=== PATIENT | female | born 1985 | race Caucasian/White ===

== ENCOUNTER 2016-07-12 14:07 | Emergency (ER) | payer SELFPAY ==
--- NOTE | 2016-07-12 14:35 | UC ---
Hand/Wrist HPI - HPI Summary HPI Summary: hit right hand on a freezer door at work Wednesday pain in 1st mc, pain ful ROM in wrist - History Of Current Complaint Chief Complaint: UCUpperExtremity Stated Complaint: RIGHT HAND PAIN Time Seen by Provider: 07/12/16 14:45 Hx Obtained From: Patient Hx Last Menstrual Period: feb 06 ?: No Mechanism Of Injury: hit hand on a freezer door Onset/Duration: Sudden Onset, Lasting Days - 2, Still Present Severity Initially: Moderate Severity Currently: Moderate Pain Intensity: 6 Pain Scale Used: 0-10 Numeric Character Of Pain: Aching, Throbbing Aggravating Factor(s): Movement Alleviating: Nothing, Other - ibuprofen Associated Signs And Symptoms: Positive: Swelling, Numbness/Tingling Related History: Occupational Injury, Dominant Hand Right - Allergies/Home Medications Allergies/Adverse Reactions: Allergies Allergy/AdvReac Type Severity Reaction Status Date / Time Ciprofloxacin Allergy Itching Verified 02/06/16 10:35 Cephalexin Allergy Itching Uncoded 07/12/16 14:40 PMH/Surg Hx/FS Hx/Imm Hx Previously Healthy: No Endocrine History Of: Denies: Diabetes, Thyroid Disease Cardiovascular History Of: Denies: Cardiac Disorders, Hypertension, Pacemaker/ICD Respiratory History Of: Reports: Asthma Denies: COPD GI/ History Of: Denies: Ulcer - Surgical History Surgical History: Yes Surgery Procedure, Year, and Place: Rt WRIST GANGLION cyst - 1999 ( [facility]) - Family History Known Family History: Positive: None - Social History 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 Lives: With Family Alcohol Use: None Substance Use Type: None Smoking Status (MU): Heavy Every Day Tobacco Smoker Type: Cigarettes Amount Used/How Often: 1/2 ppd Have You Smoked in the Last Year: Yes Household Exposure Type: Cigarettes Cessation Counseling: Patient Advised to Stop - Immunization History Most Recent Influenza Vaccination: not utd Most Recent Tetanus Shot: 2008 Most Recent Pneumonia Vaccination: none Hx Tetanus, Diphtheria Vaccination: No Vaccination Up to Date: No Review of Systems Constitutional: Negative Skin: Negative Eyes: Negative ENT: Negative Respiratory: Negative Cardiovascular: Negative Gastrointestinal: Negative Genitourinary: Negative Motor: Negative Neurovascular: Negative Musculoskeletal: Negative, Arthralgia - right 1st mc and wrist, Edema Neurological: Negative Psychological: Negative All Other Systems Reviewed And Are Negative: Yes Physical Exam Triage Information Reviewed: Yes Appearance: Well-Appearing, Pain Distress, Obese Vital Signs Reviewed: Yes Eye Exam: Normal Eyes: Positive: Conjunctiva Clear ENT Exam: Normal ENT: Positive: Normal ENT inspection, Hearing grossly normal. Negative: Nasal congestion, Nasal drainage, Tonsillar swelling, Tonsillar exudate, Trismus, Muffled/hoarse voice Dental Exam: Normal Neck exam: Normal Neck: Positive: Supple, Nontender, No Lymphadenopathy Respiratory Exam: Normal Respiratory: Positive: Chest non-tender, No respiratory distress, No accessory muscle use Cardiovascular Exam: Normal Cardiovascular: Positive: RRR, Pulses Normal, Brisk Capillary Refill Musculoskeletal Exam: Normal Musculoskeletal: Positive: Strength Limited @ - right wrist, ROM Limited @ - right wrist, Edema @ - right wrist Neurological Exam: Normal Neurological: Positive: Alert, Muscle Tone Normal Psychological Exam: Normal Skin Exam: Normal Diagnostics - Radiology No standard instances Xray Interpretation: No Acute Changes Radiology Interpretation Completed By: Radiologist Hand/Wrist Course/Dx - Course Course Of Treatment: ibuprofen, rest elevation, splint follow with orthopedic MD on the as planned - Differential Dx/Diagnosis Differential Diagnosis/HQI/PQRI: Contusion, Fracture, Sprain, Strain Provider Diagnoses: Contusion right wrist acute on chronic injury Discharge - Discharge Plan Condition: Stable Disposition: HOME Prescriptions: Ibuprofen ADULT LIQ* [Motrin LIQ ADULT*] 600 mg PO QID PRN #720 ml PRN Reason: Pain Patient Education Materials: Wrist Injury (ED), Arthralgia (ED), RICE Therapy ( ED) Forms: *Work Release Referrals: Michel Robles MD [Medical Doctor] - 07/15/16 No Primary Care Phys,NOPCP [Primary Care Provider] -
[2016-07-12 14:40] VITALS: BP 123/80
[2016-07-12] MEDS ORDERED: Ibuprofen ADULT LIQ* 600 MG/30 ML UDC PO ONE (14:46)
--- NOTE | 2016-07-12 15:25 | RAD ---
Indication: Right hand injury, attention to the first metacarpal. 4 views of the right hand are reviewed. There is no fracture or dislocation. No other bone or joint abnormality is identified. IMPRESSION: No fracture of the right hand is noted.
== END 2016-07-12 16:17 | disposition home or self-care (01) ==
LOC: UCEAST 14:07
DX: S60.211A Contusion of right wrist, initial encounter (principal); Y29.XXXA Contact with blunt object, undetermined intent, initial encounter; F17.290 Nicotine dependence, other tobacco product, uncomplicated; Z88.1 Allergy status to other antibiotic agents
CPT/HCPCS: 99213; A9270-GY; G0463

== ENCOUNTER 2016-07-25 18:55 | Emergency (ER) | payer OTHER ==
[2016-07-25] MEDS ORDERED: NS 0.9% 1000 ML* 1,000 ML IV ONE (19:52)
[2016-07-25 20:19] LABS: Hematocrit 43 % (35-47); Hemoglobin 15.1 g/dl (12.0-16.0); Mean Corpuscular HGB Conc 35 g/dl (31-36); Mean Corpuscular Hemoglobin 29 pg (27-31); Mean Corpuscular Volume 83 fL (80-97); Mean Platelet Volume 11 um3 (7.4-10.4); Red Blood Count 5.21 10^6/ul (4.0-5.4); Red Cell Distribution Width 13 % (10.5-15); White Blood Count 6.9 10^3/ul (3.5-10.8)
[2016-07-25 20:35] LABS: ALT 17 U/L (7-52); AST 18 U/L (13-39); Albumin 4.6 g/dL (3.2-5.2); Alkaline Phosphatase 109 U/L (34-104); Anion Gap 6 mmol/L (2-11); BUN/Creatinine Ratio 10.1 (8-20); Blood Urea Nitrogen 10 mg/dL (6-24); C Reactive Protein 2.21 mg/L (< 5.00); CO2 Carbon Dioxide 25 mmol/L (22-32); Chloride 105 mmol/L (101-111); EGFR African American 83.6 (>60); Globulin 3.4 g/dL (2-4); Glucose 110 mg/dL (70-100); Lipase 24 U/L (11.0-82.0); Potassium 3.8 mmol/L (3.5-5.0); Sodium 136 mmol/L (133-145)
[2016-07-25] MEDS ORDERED: Ondansetron INJ* 2 MG/ML VIAL ONE (20:49)
[2016-07-25] MEDS ORDERED: Ondansetron INJ* 2 MG/ML VIAL IV ONE (20:53)
[2016-07-25] MEDS ORDERED: Iohexol 300* (CONTRAST) 10 ML SDV IV ONE (21:15)
--- NOTE | 2016-07-25 23:27 | RAD ---
CLINICAL HISTORY: Right lower quadrant pain x2 days COMPARISON: CT of the abdomen and pelvis dated September 26, 2006. TECHNIQUE: Contrast enhanced CT examination of the abdomen and pelvis from the lung bases through the initial tuberosities. The patient received 139 mL Omnipaque 300 intravenously prior to imaging.The patient received oral contrast as well prior to imaging. FINDINGS: VISUALIZED LUNG BASES: The visualized lung bases are grossly clear. There is no pleural effusion. ABDOMEN AND PELVIS: The liver, pancreas and adrenal glands are grossly normal in appearance. The homogenously attenuating spleen is enlarged measuring a maximum cephalocaudal dimension of 16.4 cm. This is only slightly larger from the previous CT examination when it measured 15.9 cm. The gallbladder is normal. The kidneys are normal in appearance without focal mass, calcification or signs of hydronephrosis. The oral contrast has progressed as far as the base of the cecum. The small and large bowel are not distended. The patient's normal appendix is identified in the right lower quadrant measuring under 6 mm in diameter and with gas in the lumen. Evaluation of the distal colon is limited as oral contrast has not progressed as far but there is no obvious wall thickening, pathologic dilatation or pericolonic fat stranding.. There is no gross retroperitoneal or mesenteric lymphadenopathy. The pelvic viscera is normal in appearance. The abdominal aorta and iliac arteries are normal in course and diameter. There are no sinister bone lesions. IMPRESSION: There is stable splenomegaly of uncertain clinical significance in this otherwise normal CT examination.
[2016-07-26 00:45] LABS: Urine Bacteria Absent (Absent); Urine Bilirubin Negative (Negative); Urine Glucose Negative (Negative); Urine Nitrite Negative (Negative)
[2016-07-26] MEDS ORDERED: Levofloxacin TAB* 500 MG PO ONE (00:49)
[2016-07-26] MEDS ORDERED: Ibuprofen TAB* 600 MG PO ONE (00:53)
[2016-07-26] MEDS ORDERED: Sulfamethox/Trimethoprim DS 800/160* TAB PO ONE (00:54)
[2016-07-26 01:53] VITALS: BP 109/60
--- NOTE | 2016-07-26 01:55 | ED ---
Malena Celeste Anna, scribed for Brendon Brewer on 07/25/16 at 1952 . Abdominal Pain/Female - HPI Summary HPI Summary: Patient is a 31 y/o female coming to [facility] presenting with constant, lower right abd pain that began a couple days ago. The pain worsened today and is described of severity 10/10. She has had nausea and emesis. Denies fever, vaginal discharge or bleeding, Hx of appendicitis, or Hx of cholecystitis. She took 600 mg ibuprofen this morning, which did not alleviate the pain. - History of Current Complaint Chief Complaint: EDAbdPain Stated Complaint: SEVERE RIGHT SIDE PAIN Time Seen by Provider: 07/25/16 19:38 Hx Obtained From: Patient Onset/Duration: Gradual Onset, Still Present, Worse Since - today Timing: Days Severity Initially: Moderate Severity Currently: Moderate Pain Intensity: 10 - /10 Location: Discrete At: RLQ Radiates: No Alleviating Factor(s): Nothing Associated Signs and Symptoms: Positive: Nausea, Vomiting. Negative: Fever, Vaginal Bleeding, Vaginal Discharge Allergies/Adverse Reactions: Allergies Allergy/AdvReac Type Severity Reaction Status Date / Time Ciprofloxacin Allergy Itching Verified 07/25/16 19:48 Cephalexin Allergy Itching Uncoded 07/25/16 19:48 PMH/Surg Hx/FS Hx/Imm Hx Endocrine/Hematology History: Denies: Hx Diabetes, Hx Thyroid Disease Cardiovascular History: Denies: Hx Hypertension, Hx Pacemaker/ICD Respiratory History: Reports: Hx Asthma Denies: Hx Chronic Obstructive Pulmonary Disease (COPD) GI History: Denies: Hx Ulcer Musculoskeletal History: Denies: Hx Rheumatoid Arthritis, Hx Osteoporosis Sensory History: Denies: Hx Hearing Aid Psychiatric History: Denies: Hx Panic Disorder - Surgical History Surgery Procedure, Year, and Place: Rt WRIST [place]GLION cyst - 1999 [place] [facility] [place] Infectious Disease History: Denies: Hx Clostridium Difficile, Hx Hepatitis, Hx Human Immunodeficiency Virus (HIV), Hx of Known/Suspected MRSA, Hx Shingles, Hx Tuberculosis, Hx Known/ Suspected VRSA, History Other Infectious Disease, Traveled Outside the [place] in Last 30 Days - Family History Known Family History: Negative: Cardiac Disease, Hypertension - Social History Alcohol Use: None Substance Use Type: Reports: None Smoking Status (MU): Heavy Every Day Tobacco Smoker Type: Cigarettes Amount Used/How Often: 1/2 ppd Have You Smoked in the Last Year: Yes Review of Systems Negative: Fever Positive: Abdominal Pain, Vomiting, Nausea Negative: discharge All Other Systems Reviewed And Are Negative: Yes Physical Exam Triage Information Reviewed: Yes Vital Signs On Initial Exam: Initial Vitals Temp Pulse Resp BP Pulse Ox 99.2 F 112 24 147/96 100 07/25/16 19:28 07/25/16 19:28 07/25/16 19:28 07/25/16 19:28 07/25/16 19:28 Vital Signs Reviewed: Yes Appearance: Positive: Well-Appearing, No Pain Distress Skin: Positive: Warm, Skin Color Reflects Adequate Perfusion Head/Face: Positive: Normal Head/Face Inspection Eyes: Positive: EOMI, BEATRIZ ENT: Positive: Normal ENT inspection Neck: Positive: Supple, Nontender Respiratory/Lung Sounds: Positive: Clear to Auscultation, Breath Sounds Present Cardiovascular: Positive: RRR, Pulses are Symmetrical in both Upper and Lower Extremities Abdomen Description: Positive: Soft, Other: - Severe tenderness in RLQ Bowel Sounds: Positive: Present Musculoskeletal: Positive: Normal, Strength/ROM Intact Neurological: Positive: Normal, Sensory/Motor Intact, Alert, Oriented to Person Place, Time Diagnostics - Vital Signs Vital Signs Temp Pulse Resp BP Pulse Ox 07/25/16 19:28 99.2 F 112 24 147/96 100 - Laboratory Result Diagrams: 07/25/16 20:10 07/25/16 20:10 Lab Statement: Any lab studies that have been ordered have been reviewed, and results considered in the medical decision making process. - CT CT abd/pel CT Interpretation: No Acute Changes CT Interpretation Completed By: Radiologist - IMPRESSION: There is stable splenomegaly of uncertain clinical significance in this otherwise normal CT examination. Abdominal Pain Fem Course/Dx - Course Course Of Treatment: Declines analgesics at this time. CT to r/o appendicitis. Patient is a 31 y/o female coming to [facility] presenting with constant, lower right abd pain that began a couple days ago. CT, labs done. UA shows mild UTI. Pt will be discharged home with Abx and f/u from PCP within 3 days. - Diagnoses Provider Diagnoses: UTI (urinary tract infection) Discharge - Discharge Plan Condition: Stable Disposition: HOME Patient Education Materials: Urinary Tract Infection in Women (ED) Referrals: [facility] [place]YSICIAN REFERRAL [Outside] Additional Instructions: Follow up with your primary care provider within 72 hours. Return to the Emergency Department for new or worsening symptoms. The documentation as recorded by the Malena bailey Anna accurately reflects the service I personally performed and the decisions made by , Brendon Brewer.
== END 2016-07-26 01:45 | disposition home or self-care (01) ==
LOC: ED 18:55
DX: N39.0 Urinary tract infection, site not specified (principal); F17.210 Nicotine dependence, cigarettes, uncomplicated; Z88.1 Allergy status to other antibiotic agents
CPT/HCPCS: 36415; 74177; 80053; 81003; 81015; 83605; 83690; 84702; 85025; 85610; 85730; 86140; 87040; 87086; 96374; 99283; A9270-GY; J2405; Q9967

== ENCOUNTER 2016-08-22 19:59 | Emergency (ER) | payer OTHER ==
[2016-08-22 20:05] VITALS: BP 134/88
--- NOTE | 2016-08-22 20:42 | UC ---
Hand/Wrist HPI - History Of Current Complaint Chief Complaint: UCUpperExtremity Stated Complaint: HAND PAIN Time Seen by Provider: 08/22/16 20:36 Hx Last Menstrual Period: 07/31/16 Onset/Duration: Sudden Onset - yesterday left hand pain., Worse Since - throughout the day today. Character Of Pain: Sharp - stabbing in the center of the palm Aggravating Factor(s): Movement, Lifting, Pulling Alleviating: Rest Associated Signs And Symptoms: Positive: Swelling, Numbness/Tingling - with pressure over the carpal tunnel. Related History: Dominant Hand Right - Allergies/Home Medications Allergies/Adverse Reactions: Allergies Allergy/AdvReac Type Severity Reaction Status Date / Time Ciprofloxacin Allergy Itching Verified 08/22/16 20:32 Cephalexin Allergy Itching Uncoded 08/22/16 20:32 PMH/Surg Hx/FS Hx/Imm Hx Previously Healthy: Yes Other History Of: Negative For: HIV - Surgical History Surgical History: Yes Surgery Procedure, Year, and Place: Rt WRIST GANGLION cyst - 1999 ( [facility] [place]) - Family History Known Family History: Positive: None, Diabetes Negative: Cardiac Disease, Hypertension - Social History Occupation: Employed Full-time Lives: Alone Alcohol Use: None Substance Use Type: None Smoking Status (MU): Heavy Every Day Tobacco Smoker Type: Cigarettes Amount Used/How Often: 1/2 ppd Have You Smoked in the Last Year: Yes Household Exposure Type: Cigarettes Cessation Counseling: Patient Advised to Stop - Immunization History Most Recent Influenza Vaccination: not utd Most Recent Tetanus Shot: 2008 Most Recent Pneumonia Vaccination: none Hx Tetanus, Diphtheria Vaccination: No Vaccination Up to Date: No Review of Systems Neurological: Numbness - at the tips of the fingers. 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 Pain with PROM extension., Other: - tenderness over the volar wrist. Neurological: Positive: Other: - decreased sharp sensation at all finger tips Psychological Exam: Normal Skin Exam: Normal Hand/Wrist Course/Dx - Differential Dx/Diagnosis Differential Diagnosis/HQI/PQRI: Carpal Tunnel Syndrome, Tendonitis, Tenosynovitis Provider Diagnoses: Neuritis. Tendonitis Discharge - Discharge Plan Condition: Stable Disposition: HOME Prescriptions: Gabapentin CAP(*) [Neurontin 300 CAP(*)] 300 mg PO BEDTIME #30 cap predniSONE TAB* [Deltasone TAB*] 20 mg PO DAILY #18 tab Patient Education Materials: Peripheral Neuropathy (ED), Tendinitis (ED), Prednisone (By mouth), Gabapentin (By mouth) Additional Instructions: Smoking Cessation Tricks. 1. Cut down by 1 cigarette per day every 2-3 days. Write the number of smokes for that day on the calendar. 2. Identify triggers to smoking: after meals, on the phone, in the car, with coffee, on breaks at work, etc. 3. Formulate a plan with a behavior to replace the smoking. Fireballs in the car , doodle pad on the phone, flavored creamer for the coffee, go for a walk after a meal or on break at work. 4. For stress smokes do deep breathing relaxation. Breath deep in through the nose hold the breath in for a few seconds then breath out slowly through the mouth.
== END 2016-08-22 21:00 | disposition home or self-care (01) ==
LOC: UCEAST 19:59
DX: M79.2 Neuralgia and neuritis, unspecified (principal); M77.9 Enthesopathy, unspecified; Z88.3 Allergy status to other anti-infective agents; F17.210 Nicotine dependence, cigarettes, uncomplicated
CPT/HCPCS: 99212; G0463

== ENCOUNTER 2016-10-29 14:36 | Emergency (ER) | payer OTHER ==
[2016-10-29 14:58] VITALS: BP 145/101
--- NOTE | 2016-10-29 15:07 | UC ---
Lower Extremity/Ankle HPI - HPI Summary HPI Summary: 31 YEAR OLD FEMALE PRESENTS WITH LEFT KNEE INJURY SECONDARY TO TWISTING IT. - History of Current Complaint Chief Complaint: UCLowerExtremity Stated Complaint: LEG INJURY Time Seen by Provider: 10/29/16 15:06 Hx Last Menstrual Period: 10/04/16 - Allergies/Home Medications Allergies/Adverse Reactions: Allergies Allergy/AdvReac Type Severity Reaction Status Date / Time Ciprofloxacin Allergy Itching Verified 08/22/16 20:32 Cephalexin Allergy Itching Uncoded 08/22/16 20:32 PMH/Surg Hx/FS Hx/Imm Hx Previously Healthy: Yes Other History Of: Negative For: HIV - Surgical History Surgical History: Yes Surgery Procedure, Year, and Place: Rt WRIST GANGLION cyst - 1999 ( [facility]) - Family History Known Family History: Positive: None, Diabetes Negative: Cardiac Disease, Hypertension - Social History Alcohol Use: Rare Substance Use Type: None Smoking Status (MU): Heavy Every Day Tobacco Smoker Type: Cigarettes Amount Used/How Often: 1/2 ppd Have You Smoked in the Last Year: Yes Household Exposure Type: Cigarettes - Immunization History Most Recent Influenza Vaccination: not utd Most Recent Tetanus Shot: 2008 Most Recent Pneumonia Vaccination: none Hx Tetanus, Diphtheria Vaccination: No Vaccination Up to Date: No Review of Systems Constitutional: Negative Skin: Negative Eyes: Negative ENT: Negative Respiratory: Negative Cardiovascular: Negative Gastrointestinal: Negative Genitourinary: Negative Motor: Negative Neurovascular: Negative Musculoskeletal: Other: - LEFT KNEE PAIN/SWELLING Neurological: Negative Psychological: Negative All Other Systems Reviewed And Are Negative: Yes Physical Exam Triage Information Reviewed: Yes Vital Signs: Initial Vital Signs Temp 36.9 C 10/29/16 14:54 Pulse 75 10/29/16 14:54 Resp 18 10/29/16 14:54 BP 145/101 10/29/16 14:54 Pulse Ox 100 10/29/16 14:54 Eye Exam: Normal ENT Exam: Normal Dental Exam: Normal Neck exam: Normal Neck: Positive: 1 Respiratory Exam: Normal Cardiovascular Exam: Normal Abdominal Exam: Normal Musculoskeletal: Positive: Other: - LEFT KNEE PAIN/SWELLING Neurological Exam: Normal Psychological Exam: Normal Skin Exam: Normal Lower Extremity Course/Dx - Differential Dx/Diagnosis Provider Diagnoses: LEFT KNEE SPRAIN Discharge - Discharge Plan Condition: Stable Disposition: HOME Prescriptions: Meloxicam [Mobic] 7.5 mg PO BID PC #30 tab Methocarbamol TAB* [Robaxin 500 MG TAB*] 750 mg PO TID PRN #30 tab PRN Reason: Spasms Patient Education Materials: Knee Pain (ED), Leg Pain (ED) Forms: *Work Release Referrals: Michel Zimmer MD [Medical Doctor] - Peng uDnn MD [Primary Care Provider] -
--- NOTE | 2016-10-29 15:42 | RAD ---
INDICATION: Left knee injury COMPARISON: None TECHNIQUE: AP, lateral, tunnel, and sunrise views were obtained. FINDINGS: The bony structures, joint spaces, and soft tissues are normal for age. IMPRESSION: NEGATIVE EXAMINATION.
== END 2016-10-29 16:05 | disposition home or self-care (01) ==
LOC: UCEAST 14:36
DX: S83.92XA Sprain of unspecified site of left knee, initial encounter (principal); X50.1XXA Overexertion from prolonged static or awkward postures, initial encounter; Z88.3 Allergy status to other anti-infective agents; F17.210 Nicotine dependence, cigarettes, uncomplicated
CPT/HCPCS: 99213; G0463

== ENCOUNTER 2017-01-05 16:38 | Emergency (ER) | payer OTHER ==
[2017-01-05] MEDS ORDERED: NS 0.9% 1000 ML* 1,000 ML IV ONE (18:58)
[2017-01-05] MEDS ORDERED: cefTRIAXone(*) 1 GM in NS 0.9% 50 ML* 50 ML IVPB ONE (18:58)
[2017-01-05] MEDS ORDERED: Ketorolac INJ* 15 MG/ML 1 ML VIAL IV PUSH ONE (19:01)
--- NOTE | 2017-01-05 19:12 | ED ---
Abdominal Pain/Female - HPI Summary HPI Summary: 31F hx of gallbladder disease, spondylosis, presents with RLQ abd pain accompanied by nausea, vom, and fever. intermittent now constant started periumbilical now RLQ. + dysuria and cloudy urine. Denies any prior episodes. No abd surgeries in the past. no weakness or numbness. Worse with movement and palpation. denies or vaginal bleeding or discharge. - History of Current Complaint Chief Complaint: EDAbdPain Stated Complaint: ABD PAIN Time Seen by Provider: 01/05/17 18:49 Hx Last Menstrual Period: 10/04/16 Pain Intensity: 10 Allergies/Adverse Reactions: Allergies Allergy/AdvReac Type Severity Reaction Status Date / Time Ciprofloxacin Allergy Itching Verified 11/09/16 14:33 Cephalexin Allergy Itching Uncoded 11/09/16 14:33 PMH/Surg Hx/FS Hx/Imm Hx Endocrine/Hematology History: Denies: Hx Diabetes - HYPOGLYCEMIC, Hx Thyroid Disease Cardiovascular History: Denies: Hx Hypertension, Hx Pacemaker/ICD Respiratory History: Reports: Hx Asthma Denies: Hx Chronic Obstructive Pulmonary Disease (COPD) GI History: Denies: Hx Ulcer Musculoskeletal History: Denies: Hx Rheumatoid Arthritis, Hx Osteoporosis Sensory History: Denies: Hx Hearing Aid Psychiatric History: Denies: Hx Panic Disorder - Surgical History Surgery Procedure, Year, and Place: [place] [facility] [place] - Immunization History Date of Tetanus Vaccine: unk Date of Influenza Vaccine: none Infectious Disease History: No Infectious Disease History: Denies: Hx Clostridium Difficile, Hx Hepatitis, Hx Human Immunodeficiency Virus (HIV), Hx of Known/Suspected MRSA, Hx Shingles, Hx Tuberculosis, Hx Known/ Suspected VRSA, History Other Infectious Disease, Traveled Outside the [place] in Last 30 Days - Family History Known Family History: Positive: None, Diabetes Negative: Cardiac Disease, Hypertension - Social History Alcohol Use: Rare Substance Use Type: Reports: None Smoking Status (MU): Heavy Every Day Tobacco Smoker Type: Cigarettes Amount Used/How Often: 1/2 ppd Have You Smoked in the Last Year: Yes - Additional Comments History Additional Comments: gallbladder 'attacks' in the past, spondylosis Review of Systems Positive: Fever Eyes: Negative ENT: Negative Cardiovascular: Negative Respiratory: Negative Positive: Abdominal Pain Positive: burning, dysuria, hematuria Skin: Negative Neurological: Negative All Other Systems Reviewed And Are Negative: Yes Physical Exam Vital Signs On Initial Exam: Initial Vitals Temp Pulse Resp BP Pulse Ox 38.0 C 90 17 139/79 100 01/05/17 17:20 01/05/17 17:20 01/05/17 17:20 01/05/17 17:20 01/05/17 17:20 Appearance: Positive: Well-Appearing Skin: Positive: Warm, Dry Head/Face: Positive: Normal Head/Face Inspection Eyes: Positive: Normal, EOMI Neck: Positive: Supple Respiratory/Lung Sounds: Positive: Clear to Auscultation, Breath Sounds Present Cardiovascular: Positive: Normal, RRR Abdomen Description: Positive: Other: - tenderness to RLQ, + rovsing sign. neg psoas sign. Pelvic Exam: Positive: other - deferred. denies vag bleeding or discharge Musculoskeletal: Positive: Other - +CVAT on R Neurological: Positive: Normal, Sensory/Motor Intact, Alert, Oriented to Person Place, Time. Negative: Receptive Aphasia, Expressive Aphasia Psychiatric: Positive: Normal - Char Coma Scale Coma Scale Total: 15 Diagnostics - Vital Signs Vital Signs Temp Pulse Resp BP Pulse Ox 01/05/17 17:20 38.0 C 90 17 139/79 100 - Laboratory Result Diagrams: 01/05/17 20:05 01/05/17 20:05 Lab Statement: Any lab studies that have been ordered have been reviewed, and results considered in the medical decision making process. - CT F CT Interpretation Completed By: Radiologist - CT consistent with uti without evidence of appendicitis or any other acute pathology Re-Evaluation - Re-Evaluation Second Eval Change: Improved Abdominal Pain Fem Course/Dx - Course Course Of Treatment: pt feels better after meds and abx here in ed, CT consistnet with UTI without appendiciits, instructed to continue abx and make an appt with PMD, agrees to and uderstands dc instrutoins. - Diagnoses Provider Diagnoses: UTI (urinary tract infection) Discharge - Discharge Plan Condition: Improved Disposition: HOME Prescriptions: Cephalexin CAP* [Keflex CAP*] 500 mg PO QID #28 cap Patient Education Materials: Urinary Tract Infection in Women (ED) Referrals: No Primary Care Phys,NOPCP [Primary Care Provider] - Cherry Rosales MD [Medical Doctor] - Manuel Singer [Medical Doctor] - Additional Instructions: 1. PLEASE RETURN TO THE ER IF YOU HAVE ANY WORSENING OR CONCERNING SYMPTOMS 2 .PLEASE SEE A PRIMARY CARE DOCTOR WITHIN 1 WEEK
--- NOTE | 2017-01-05 19:36 | RAD ---
Indication: Right hydronephrosis. Right flank pain. Real-time sonography of the kidneys was performed. The right kidney measures 10.7 x 5.0 x 5.8 cm. No hydronephrosis is noted. The left kidney measures 10.8 x 6.0 x 4.5 cm. No hydronephrosis is noted. Detail is somewhat limited due to patient's body habitus. IMPRESSION: No hydronephrosis of either kidney is noted.
[2017-01-05 19:59] LABS: Urine Bacteria 1+ (Absent); Urine Bilirubin Negative (Negative); Urine Glucose Negative (Negative); Urine Nitrite Positive (Negative)
[2017-01-05 20:19] LABS: Hematocrit 38 % (35-47); Hemoglobin 13.5 g/dl (12.0-16.0); Mean Corpuscular HGB Conc 35 g/dl (31-36); Mean Corpuscular Hemoglobin 30 pg (27-31); Mean Corpuscular Volume 85 fL (80-97); Mean Platelet Volume 11 um3 (7.4-10.4); Red Blood Count 4.53 10^6/ul (4.0-5.4); Red Cell Distribution Width 13 % (10.5-15); White Blood Count 8.8 10^3/ul (3.5-10.8)
[2017-01-05 20:34] LABS: ALT 44 U/L (7-52); AST 27 U/L (13-39); Albumin 3.7 g/dL (3.2-5.2); Alkaline Phosphatase 125 U/L (34-104); Anion Gap 4 mmol/L (2-11); BUN/Creatinine Ratio 8.1 (8-20); Blood Urea Nitrogen 7 mg/dL (6-24); CO2 Carbon Dioxide 27 mmol/L (22-32); Calcium 8.8 mg/dL (8.6-10.3); Chloride 106 mmol/L (101-111); EGFR African American 98.3 (>60); EGFR Non-African American 76.5 (>60); Globulin 3.2 g/dL (2-4); Glucose 89 mg/dL (70-100); Indirect Bilirubin 0.6 mg/dL (0.3-1.0); Lipase 14 U/L (11.0-82.0); Potassium 3.8 mmol/L (3.5-5.0); Sodium 137 mmol/L (133-145); Total Protein 6.9 g/dL (6.4-8.9)
[2017-01-05] MEDS ORDERED: Iohexol 300* (CONTRAST) 10 ML SDV IV ONE (21:31)
[2017-01-05] MEDS ORDERED: Ondansetron INJ* 2 MG/ML VIAL IV ONE (22:02)
[2017-01-06 01:01] VITALS: BP 123/89
--- NOTE | 2017-01-06 08:00 | RAD ---
INDICATION: Right lower quadrant abdominal pain evaluate for appendicitis. COMPARISON: Comparison is made with a prior study from July 25, 2016. TECHNIQUE: A CT scan of the abdomen and pelvis was performed with intravenous and oral contrast following intravenous injection of 133 ml of Omnipaque 300 nonionic contrast. Contiguous axial sections were obtained from the lung bases through the symphysis pubis. Images were reconstructed in the coronal and sagittal planes. FINDINGS: There is mild dependent bilateral lower lobe subsegmental atelectasis. No pleural effusion is present. The liver is normal in size without significant focal abnormality. No calcified gallstones are seen. The pancreas appears to be within normal limits. The spleen is moderately enlarged measuring 14.4 cm in craniocaudad dimension which is unchanged significantly. No focal abnormality is seen. The adrenal glands and kidneys are normal in size. No renal calculi or hydronephrosis is seen. There is mild thickening of the wall of the right renal pelvis and ureter with mild peripelvic and periureteric stranding. There is also thickening and enhancement around the urinary bladder. These findings are most consistent with a urinary tract infection involving the bladder in right collecting system. There is no gross evidence for pyelonephritis. The aorta is normal in caliber and demonstrates homogeneous contrast opacification. No significant enlarged retroperitoneal lymph nodes are seen. There is a small hiatal hernia. The stomach, small and large bowel appear nondistended. The appendix is within normal limits. There is no evidence for diverticulitis or colitis. The uterus is anteverted and normal in size. No free intraperitoneal air or fluid is seen. No significant focal osseous abnormality is seen. IMPRESSION: 1. FINDINGS CONSISTENT WITH A URINARY TRACT INFECTION INVOLVING THE RIGHT COLLECTING SYSTEM, URETER AND BLADDER. 2. SPLENOMEGALY, UNCHANGED.
--- NOTE | 2017-01-08 10:40 | PN ---
Progress Note - Progress Note Date of Service: 01/05/17 Note: patient diagnosed with UTI treated with keflex at d/c. >100,000 of e. coli grew on preliminary culture results. Will wait for final culture results to check susceptibility.
--- NOTE | 2017-01-08 12:45 | PN ---
Progress Note - Progress Note Date of Service: 01/08/17 Note: placed on keflex. has susceptibility on final culture results. no further action required at this time.
== END 2017-01-06 01:00 | disposition home or self-care (01) ==
LOC: ED 16:38
DX: N39.0 Urinary tract infection, site not specified (principal); R10.9 Unspecified abdominal pain; R30.0 Dysuria; R31.9 Hematuria, unspecified; F17.211 Nicotine dependence, cigarettes, in remission
CPT/HCPCS: 36415; 74177; 76775; 80053; 81003; 81015; 82248; 83605; 83690; 84702; 85025; 85610; 87040; 87077; 87086; 87186; 96374; 96375; 99284; J0696; J1885; J2405; Q9967

== ENCOUNTER 2017-02-18 20:30 | Emergency (ER) | payer OTHER ==
[2017-02-18 21:30] LABS: Hematocrit 37 % (35-47); Mean Corpuscular HGB Conc 35 g/dl (31-36); Mean Corpuscular Hemoglobin 30 pg (27-31); Mean Corpuscular Volume 85 fL (80-97); Mean Platelet Volume 11 um3 (7.4-10.4); Red Blood Count 4.37 10^6/ul (4.0-5.4); Red Cell Distribution Width 13 % (10.5-15)
[2017-02-18 21:44] LABS: Albumin 4.2 g/dL (3.2-5.2); BUN/Creatinine Ratio 15.1 (8-20); Calcium 9.6 mg/dL (8.6-10.3); EGFR African American 118.8 (>60); EGFR Non-African American 92.4 (>60); Globulin 2.8 g/dL (2-4); Potassium 3.5 mmol/L (3.5-5.0); Total Bilirubin 0.7 mg/dL (0.2-1.0)
[2017-02-19] MEDS ORDERED: Metoclopramide IV* 5 MG/ML 2 ML VIAL IV SLOW PU ONE (01:10)
[2017-02-19] MEDS ORDERED: NS 0.9% 1000 ML* 1,000 ML IV ONE (01:10)
--- NOTE | 2017-02-19 01:40 | ED ---
- HPI Summary HPI Summary: 31F LMP Jan 04 at 7 weeks presents with vomiting and nausea for 3 days. She states she hasn't been able to tolerate anything for 3 days. She is tolerating liquids sometimes. She denies any fever, diarrhea or constipation. She occasionally admits to lower abdominal cramping but not currently. no vaginal bleeding. no dysuria. no urgency, frequency, or flank pain. no previous abdominal surgeries. she has not seen her obgyn yet. She has not tried anything for her symptoms. She has never had this with her previous pregnancies. - History of Current Complaint Chief Complaint: EDNauseaVomitDiarrh Stated Complaint: VOMITING/7 WKS PREG Time Seen by Provider: 02/19/17 01:02 Pain Intensity: 8 - Assessment Hx Now: No - Allergies/Home Medications Allergies/Adverse Reactions: Allergies Allergy/AdvReac Type Severity Reaction Status Date / Time Ciprofloxacin Allergy Itching Verified 02/18/17 20:43 Cephalexin Allergy Itching Uncoded 02/18/17 20:43 PMH/Surg Hx/FS Hx/Imm Hx Endocrine/Hematology History: Denies: Hx Diabetes - HYPOGLYCEMIC, Hx Thyroid Disease Cardiovascular History: Denies: Hx Hypertension, Hx Pacemaker/ICD Respiratory History: Reports: Hx Asthma Denies: Hx Chronic Obstructive Pulmonary Disease (COPD) GI History: Denies: Hx Ulcer History: Denies: Hx Renal Disease Musculoskeletal History: Denies: Hx Rheumatoid Arthritis, Hx Osteoporosis Sensory History: Denies: Hx Hearing Aid Psychiatric History: Denies: Hx Panic Disorder - Surgical History Surgery Procedure, Year, and Place: Rt WRIST GANGLION cyst - 1999 ( [facility] [place]) - Immunization History Date of Tetanus Vaccine: unk Date of Influenza Vaccine: none Infectious Disease History: No Infectious Disease History: Denies: Hx Clostridium Difficile, Hx Hepatitis, Hx Human Immunodeficiency Virus (HIV), Hx of Known/Suspected MRSA, Hx Shingles, Hx Tuberculosis, Hx Known/ Suspected VRSA, History Other Infectious Disease, Traveled Outside the [place] in Last 30 Days - Family History Known Family History: Positive: None, Diabetes Negative: Cardiac Disease, Hypertension - Social History Alcohol Use: Rare Substance Use Type: Reports: None Smoking Status (MU): Heavy Every Day Tobacco Smoker Type: Cigarettes Amount Used/How Often: 1/2 ppd Have You Smoked in the Last Year: Yes Review of Systems Negative: Fever Negative: Chest Pain Negative: Shortness Of Breath Positive: Vomiting, Nausea Negative: dysuria All Other Systems Reviewed And Are Negative: Yes Physical Exam - Physical Exam Triage Information Reviewed: Yes Vital Signs Reviewed: Yes Appearance: Positive: Well-Appearing Skin: Positive: Warm, Dry Head/Face: Positive: Normal Head/Face Inspection Eyes: Positive: Normal, EOMI, BEATRIZ, Conjunctiva Clear ENT: Positive: Normal ENT inspection, Pharynx normal, TMs normal Respiratory/Lung Sounds: Positive: Clear to Auscultation, Breath Sounds Present Cardiovascular: Positive: Normal, RRR Abdomen Description: Positive: Nontender, Soft Bowel Sounds: Positive: Present Musculoskeletal: Positive: Normal Neurological: Positive: Normal Psychiatric: Positive: Normal Diagnostics - Vital Signs Vital Signs Temp Pulse Resp BP Pulse Ox 02/18/17 22:43 97.1 F 61 16 129/76 98 02/18/17 20:39 97.8 F 59 16 130/87 100 - Laboratory Lab Results: Lab Results 02/18/17 02/18/17 02/18/17 Range/Units 21:20 21:20 21:20 WBC 6.0 (3.5-10.8) 10^3/ul RBC 4.37 (4.0-5.4) 10^6/ul Hgb 13.0 (12.0-16.0) g/dl Hct 37 (35-47) % MCV 85 (80-97) fL MCH 30 (27-31) pg MCHC 35 (31-36) g/dl RDW 13 (10.5-15) % Plt Count 156 (150-450) 10^3/ul MPV 11 H (7.4-10.4) um3 Neut % (Auto) 58.4 (38-83) % Lymph % (Auto) 32.6 (25-47) % [place] % (Auto) 5.7 (1-9) % Eos % (Auto) 2.3 (0-6) % Baso % (Auto) 1.0 (0-2) % Absolute Neuts (auto) 3.5 (1.5-7.7) 10^3/ul Absolute Lymphs (auto) 2.0 (1.0-4.8) 10^3/ul Absolute Monos (auto) 0.3 (0-0.8) 10^3/ul Absolute Eos (auto) 0.1 (0-0.6) 10^3/ul Absolute Basos (auto) 0.1 (0-0.2) 10^3/ul Absolute Nucleated RBC 0.01 10^3/ul Nucleated RBC % 0.2 Sodium 133 (133-145) mmol/L Potassium 3.5 (3.5-5.0) mmol/L Chloride 104 (101-111) mmol/L Carbon Dioxide 23 (22-32) mmol/L Anion Gap 6 (2-11) mmol/L BUN 11 (6-24) mg/dL Creatinine 0.73 (0.51-0.95) mg/dL Est GFR ( Amer) 118.8 (>60) Est GFR (Non-Af Amer) 92.4 (>60) BUN/Creatinine Ratio 15.1 (8-20) Glucose 86 (70-100) mg/dL Lactic Acid 0.6 (0.5-2.0) mmol/L Calcium 9.6 (8.6-10.3) mg/dL Total Bilirubin 0.70 (0.2-1.0) mg/dL AST 16 (13-39) U/L ALT 15 (7-52) U/L Alkaline Phosphatase 83 (34-104) U/L Total Protein 7.0 (6.4-8.9) g/dL Albumin 4.2 (3.2-5.2) g/dL Globulin 2.8 (2-4) g/dL Albumin/Globulin Ratio 1.5 (1-3) Lipase 15 (11.0-82.0) U/L Beta HCG, Quant 373547.00 mIU/mL Result Diagrams: 02/18/17 21:20 02/18/17 21:20 Lab Statement: Any lab studies that have been ordered have been reviewed, and results considered in the medical decision making process. Course/Dx - Course Course Of Treatment: 31F LMP Oct 16 at 7 weeks presents with vomiting and nausea for 3 days. She states she hasn't been able to tolerate anything for 3 days. She is tolerating liquids sometimes. She denies any fever , diarrhea or constipation. She occasionally admits to lower abdominal cramping but not currently. no vaginal bleeding. no dysuria. no urgency, frequency, or flank pain. no previous abdominal surgeries. she has not seen her obgyn yet. She has not tried anything for her symptoms. She has never had this with her previous pregnancies. on exam abdomen soft nontender. normal labs. unable to do u/s due to being late at night. advised that if develops vaginal bleeding or increased abdominal pain to return during day for u/s. will give reglan and fluids. will discharge with diclegis and reglan. told to follow up with obgyn. patient understand and agrees with plan. - Differential Diagnosis/HQI/PQRI: Intrauterine , Hyperemesis Gravidarum , UTI - Diagnoses Provider Diagnoses: Nausea and vomiting during Discharge - Discharge Plan Condition: Good Disposition: HOME Prescriptions: Doxylamine/Pyridoxine(NF) [Diclegis (NF)] 1 tab PO DAILY #40 tab Metoclopramide TAB* [Reglan TAB*] 5 mg PO Q6H PRN #20 tab PRN Reason: Nausea Patient Education Materials: Nausea and Vomiting in (ED) Referrals: [facility] [place] PHYSICIAN REFERRAL [Outside] Melvi Stockton MD [Medical Doctor] - Additional Instructions: Take Diclegis two tablets at bedtime on day 1 and 2; if symptoms persist, take 1 tablet in morning and 2 tablets at bedtime on day 3; if symptoms persist, may increase to 1 tablet in morning, 1 tablet mid-afternoon, and 2 tablets at bedtime on day 4, max 4 tablets a day Take reglan every 6 hours for break through vomiting until Diclegis starts to work Eat a small snack throughout the day, drink liquids as tolerated Follow up with obgyn Return to ED if develop any new or worsening symptoms
[2017-02-19] MEDS ORDERED: Metoclopramide TAB* 10 MG PO ONE (02:35)
[2017-02-19 03:16] VITALS: BP 132/70
== END 2017-02-19 03:16 | disposition home or self-care (01) ==
LOC: ED 20:30
DX: O21.0 Mild hyperemesis gravidarum (principal); Z3A.01 Less than 8 weeks gestation of pregnancy; O99.331 Smoking (tobacco) complicating pregnancy, first trimester
CPT/HCPCS: 36415; 80053; 83605; 83690; 84702; 85025; 96360; 96374; 96375; 99284; A9270-GY; J2765

== ENCOUNTER 2017-03-03 14:47 | Emergency (ER) | payer OTHER ==
[2017-03-03] MEDS ORDERED: NS 0.9% 1000 ML* 1,000 ML IV ONE (15:29)
[2017-03-03 15:44] LABS: ABS Basophils 0.1 10^3/ul (0-0.2); ABS Eosinophils 0.1 10^3/ul (0-0.6); ABS Lymphocytes 1.5 10^3/ul (1.0-4.8); ABS Monocytes 0.4 10^3/ul (0-0.8); ABS Neutrophils 3.2 10^3/ul (1.5-7.7); ABS Nucleated RBC 0 10^3/ul; Eosinophil % 1.8 % (0-6); Hematocrit 37 % (35-47); Hemoglobin 12.8 g/dl (12.0-16.0); Lymphocyte % 27.7 % (25-47); Mean Corpuscular HGB Conc 35 g/dl (31-36); Mean Corpuscular Hemoglobin 30 pg (27-31); Mean Corpuscular Volume 86 fL (80-97); Mean Platelet Volume 10 um3 (7.4-10.4); Nucleated Red Blood Cells % 0; Platelet Count 147 10^3/ul (150-450); Red Blood Count 4.28 10^6/ul (4.0-5.4); Red Cell Distribution Width 13 % (10.5-15); White Blood Count 5.3 10^3/ul (3.5-10.8)
[2017-03-03 15:58] LABS: INR 1.1 (0.77-1.02)
--- NOTE | 2017-03-03 16:04 | ED ---
- HPI Summary HPI Summary: 32 female presents to ED with complaints of spotting that began this morning and she is 9 weeks . LMP was Dec 31. no miscarriages or complications with previous 6 births. Denies any pain. Had HCG tested last week and was 182,000. No other complaints. Has not been recently sick. No new medications, alcohol or drug use. No fever/chills. Has been nauseous since started. No PMHx. No vaginal discharge, itching or odor otherwise. Denies genitalia symptoms. 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 No concern for STD. - History of Current Complaint Chief Complaint: EDOBProblems Stated Complaint: 9 WEEKS WITH SPOTTING Time Seen by Provider: 03/03/17 14:58 Hx Obtained From: Patient Chief Complaint: Vaginal Bleeding - spotting Onset/Duration: Started Hours Ago - this morning Timing: Intermittent Severity: Mild Current Severity: None Pain Intensity: 0 Location of Pain: None Character: None Aggravating Factors: Nothing Alleviating Factors: Nothing Associated Signs and Symptoms: Positive: Vaginal Bleeding or Discharge - "spotting" - Assessment Hx Now: Yes Hx : 7 Hx Para: 6 History of Ectopic : No Hx Pelvic Inflammatory Disease: No Vaginal Bleeding Amount: Spotting Hx Last Menstrual Period: 12/31/16 History of STI/STD: No - Allergies/Home Medications Allergies/Adverse Reactions: Allergies Allergy/AdvReac Type Severity Reaction Status Date / Time Ciprofloxacin Allergy Itching Verified 02/18/17 20:43 Cephalexin Allergy Itching Uncoded 02/18/17 20:43 PMH/Surg Hx/FS Hx/Imm Hx Endocrine/Hematology History: Denies: Hx Diabetes - HYPOGLYCEMIC, Hx Thyroid Disease Cardiovascular History: Denies: Hx Hypertension, Hx Pacemaker/ICD Respiratory History: Reports: Hx Asthma Denies: Hx Chronic Obstructive Pulmonary Disease (COPD) GI History: Denies: Hx Ulcer History: Denies: Hx Renal Disease Musculoskeletal History: Denies: Hx Rheumatoid Arthritis, Hx Osteoporosis Sensory History: Denies: Hx Hearing Aid Psychiatric History: Denies: Hx Panic Disorder - Surgical History Surgery Procedure, Year, and Place: R[place] W[place]ST [place] 1999 ( [facility] [place] - Immunization History Date of Tetanus Vaccine: unk Date of Influenza Vaccine: none Immunizations Up to Date: Yes Infectious Disease History: No Infectious Disease History: Denies: Hx Clostridium Difficile, Hx Hepatitis, Hx Human Immunodeficiency Virus (HIV), Hx of Known/Suspected MRSA, Hx Shingles, Hx Tuberculosis, Hx Known/ Suspected VRSA, History Other Infectious Disease, Traveled Outside the [place] in Last 30 Days - Family History Known Family History: Positive: None, Diabetes Negative: Cardiac Disease, Hypertension - Social History Alcohol Use: None Substance Use Type: Reports: None Smoking Status (MU): Light Every Day Tobacco Smoker Type: Cigarettes Amount Used/How Often: 1/2 ppd Have You Smoked in the Last Year: Yes Review of Systems Constitutional: Negative Cardiovascular: Negative Respiratory: Negative Positive: Abdominal Pain - hernia, not related to current symptoms, Vomiting - resolved after first few weeks of , Nausea Positive: other - vaginal spotting All Other Systems Reviewed And Are Negative: Yes Physical Exam - Physical Exam Triage Information Reviewed: Yes Vital Signs On Initial Exam: temp: 98F HR: 72 BP: 139/72 Resp: 18 O2: 100 Vital Signs Reviewed: Yes Appearance: Positive: Well-Appearing, No Pain Distress, Well-Nourished Skin: Positive: Warm, Skin Color Reflects Adequate Perfusion, Dry. Negative: Cold, Numb, Cyanosis @, Jaundiced, Erythema @ Head/Face: Positive: Normal Head/Face Inspection Eyes: Positive: EOMI, BEATRIZ, Conjunctiva Clear ENT: Positive: Hearing grossly normal Neck: Positive: Supple, Nontender Respiratory/Lung Sounds: Positive: Clear to Auscultation, Breath Sounds Present. Negative: Rales, Rhonchi, Wheezes Cardiovascular: Positive: Normal, RRR, Pulses are Symmetrical in both Upper and Lower Extremities. Negative: Murmur, Rub Abdomen Description: Positive: Nontender, No Organomegaly, Soft, Other: - patient refused pelvic exam. Negative: CVA Tenderness (R), CVA Tenderness (L), Distended, Guarding, McBurney's Point Tenderness, Pulsatile Mass Bowel Sounds: Positive: Present Musculoskeletal: Positive: Normal, Strength/ROM Intact Neurological: Positive: Normal, Sensory/Motor Intact, Alert, Oriented to Person Place, Time Diagnostics - Vital Signs Vital Signs Temp Pulse Resp BP Pulse Ox 03/03/17 14:48 98.0 F 72 18 139/75 100 - Laboratory Lab Results: Lab Results 03/03/17 03/03/17 03/03/17 Range/Units 15:35 15:35 15:35 WBC 5.3 (3.5-10.8) 10^3/ul RBC 4.28 (4.0-5.4) 10^6/ul Hgb 12.8 (12.0-16.0) g/dl Hct 37 (35-47) % MCV 86 (80-97) fL MCH 30 (27-31) pg MCHC 35 (31-36) g/dl RDW 13 (10.5-15) % Plt Count 147 L (150-450) 10^3/ul MPV 10 (7.4-10.4) um3 Neut % (Auto) 61.0 (38-83) % Lymph % (Auto) 27.7 (25-47) % [place] % (Auto) 8.4 (1-9) % Eos % (Auto) 1.8 (0-6) % Baso % (Auto) 1.1 (0-2) % Absolute Neuts (auto) 3.2 (1.5-7.7) 10^3/ul Absolute Lymphs (auto) 1.5 (1.0-4.8) 10^3/ul Absolute Monos (auto) 0.4 (0-0.8) 10^3/ul Absolute Eos (auto) 0.1 (0-0.6) 10^3/ul Absolute Basos (auto) 0.1 (0-0.2) 10^3/ul Absolute Nucleated RBC 0 10^3/ul Nucleated RBC % 0 INR (Anticoag Therapy) 1.10 H (0.77-1.02) APTT 28.0 (26.0-36.3) seconds Lactic Acid 0.6 (0.5-2.0) mmol/L Result Diagrams: 03/03/17 15:35 03/03/17 15:35 Lab Statement: Any lab studies that have been ordered have been reviewed, and results considered in the medical decision making process. - Ultrasound No standard instances Ultrasound Interpretation: Positive (See Comments) - SINGLE LIVE INTRAUTERINE GESTATION AT 9 WEEKS AND 2 DAYS BY CROWN-RUMP LENGTH. Ultrasound Interpretation Completed By: Radiologist Course/Dx - Course Course Of Treatment: labs and urinalysis obtained. patient refused pelvic exam and STD testing. even after educating on other possible causes of spotting. states she would have it done at her OBGYN office if it continues. educated I was unable to eliminate other causes of spotting. US obtained and showed 9 week fetus in uterus without complication, no abnormal findings, FHR 169. HCG has doubled from 182,000 to 272,600 and normal. No concern for miscarriage or other etiology at this time. probable pathophysiologic vaginal spotting in first trimester. Follow up with OBGYN closely and repeat labs/imaging. Patient has OBGYN and will call to be seen this week. No other complaints at this time. No other concerns at this time. normal vitals, no pain. - Differential Diagnosis/HQI/PQRI: Threatened , Early , Vaginal Bleeding - Diagnoses Provider Diagnoses: , Vaginal spotting Discharge - Discharge Plan Condition: Stable Disposition: HOME Patient Education Materials: (ED), First Trimester Vaginal Bleed (ED) Referrals: Melvi Stockton MD [Medical Doctor] - [facility] [place] [Outside] Additional Instructions: Please follow up with OBGYN as discussed to ensure close follow up with repeat labs/imaging and rule out other causes such as infection if concerned. Any new or worsening symptoms please seek medical attention immediately. Congratulations!
[2017-03-03 16:08] LABS: EGFR Non-African American 93.3 (>60)
[2017-03-03 16:27] LABS: Urine Appearance Clear; Urine Blood 2+ (Negative); Urine Color Yellow; Urine Ketones Negative (Negative); Urine Protein Negative (Negative); Urine Specific Gravity 1.011 (1.010-1.030); Urine Urobilinogen Negative (Negative)
--- NOTE | 2017-03-03 17:03 | RAD ---
HISTORY: Bleeding, . The gestational age by dates is 8 weeks and 6 days. COMPARISONS: None TECHNIQUE: Multiple transverse and longitudinal ultrasound images were obtained of the pelvis using grayscale, color Doppler, spectral Doppler imaging and M-Mode Doppler imaging using the endovaginal transducer. FINDINGS: UTERUS: The uterus is normal in shape, size, contour, and echotexture. GESTATION: There is a single live intrauterine gestation. The crown-rump length measures 2.4 cm for a gestational age of 9 weeks and 2 days. The VALENTINO is October 04, 2017 based on the crown-rump length. This is concordant with age by dates.. cardiac motion is detected at a rate of 169 beats per minute. Gross movement is identified. anatomy cannot be assessed secondary to early dates. The amniotic fluid is qualitatively normal. There are no retroplacental fluid collections. CUL-DE-SAC: There is no free fluid within the cul-de-sac. RIGHT OVARY: The right ovary measures 4.3 x 2.4 x 3.1 cm. Normal arterial and venous waveforms are identifiable within the ovary on spectral Doppler imaging. LEFT OVARY: The left ovary measures 3.8 x 2.5 x 2.2 cm. Normal arterial and venous waveforms are identifiable within the ovary on spectral Doppler imaging. BLADDER: The bladder is not well visualized. IMPRESSION: SINGLE LIVE INTRAUTERINE GESTATION AT 9 WEEKS AND 2 DAYS BY CROWN-RUMP LENGTH.
[2017-03-03 18:40] VITALS: BP 132/70
--- NOTE | 2017-03-09 09:07 | PN ---
Progress Note - Progress Note Date of Service: 03/03/17 Note: no growth on final urine culture results
== END 2017-03-03 18:39 | disposition home or self-care (01) ==
LOC: ED 14:47
DX: O46.91 Antepartum hemorrhage, unspecified, first trimester (principal); O99.331 Smoking (tobacco) complicating pregnancy, first trimester; Z3A.09 9 weeks gestation of pregnancy; F17.220 Nicotine dependence, chewing tobacco, uncomplicated
CPT/HCPCS: 36415; 76817; 80053; 81003; 81015; 83605; 84702; 85025; 85610; 85730; 87077; 87086; 96360; 99283

== ENCOUNTER 2017-09-30 07:20 | Inpatient (IN) | payer OTHER ==
[2017-09-30] MEDS ORDERED: Penicillin G Potassium IV* 5,000,000 UNITS in NS 0.9% 100 ML* 100 ML IVPB ONE (08:37)
[2017-09-30] MEDS ORDERED: Misoprostol TAB* 100 MCG PO ONE (08:37)
[2017-09-30] MEDS ORDERED: Misoprostol TAB* 100 MCG ONE (08:57)
[2017-09-30] MEDS ORDERED: Calcium Carbonate CHEW TAB* 500 MG (TUMS) PO PRN (09:51)
[2017-09-30] MEDS ORDERED: Calcium Carbonate CHEW TAB* 500 MG (TUMS) ONE (09:57)
--- NOTE | 2017-09-30 10:17 | HP ---
General Information - Reason for Visit PT comes for induction at 39wks. Prior induction with several of her pregnancies - all took a while. - General Information Maternal Age: 32 Grav: 8 Para: 6 SAB: 1 IEA: 0 Estimated Due Date: 10/07/17 Determined By: LMP Maternal Blood Type and Rh: B Positive - Results this Serology/RPR Result: Non-Reactive Rubella Result: Immune HBsAg Result: Negative HIV Result: Negative GBS Culture Result: Positive Past Medical History Delivery History: Hx Complicated Vaginal Delivery - hx pph, macrosomia, See Records Pertinent Past Medical History: See Records Pertinent Past Surgical History: See Records Pertinent Family History: Non-Contributory - Antepartal Records Antepartal Records: Reviewed, Complicated by: - GBS+, 50+lb weight gain Review of Systems Constitutional: Comfortable CV Complaint: No Respiratory: Shortness of Breath: No Gastrointestinal: No Nausea/Vomiting, Normal Bowel Movement Genitourinary: No Dysuria, No Bleeding, No Leaking Fluid Musculoskeletal: No Complaint Movement: Normal Exam Allergies/Adverse Reactions: Allergies MS Ciprofloxacin [Ciprofloxacin] Allergy (Verified 08/28/17 03:08) Itching Cephalexin Allergy (Uncoded 08/28/17 03:08) Itching Blotchy red skin WNL - Measurements Height: 5 ft 11 in Weight: 320 lb Weight in lbs: [phone] Body Mass Index (BMI): 44.6 Pre- Weight: 261 lb Weight Gained This : 59 lbs and 0 ozs - Exam Breast: Breast Exam Deferred Extremities: No Edema Heart: Normal Rhythm/Heart Sounds HEENT: No Significant Findings Targeted Exam Findings Cervical Exam: 1cm Effacement: 50% Station: -3 Presenting Part: Vertex Membrane Status: Intact EFM Findings - External Monitor Findings Baseline Heart Rate: 135 External Monitor Findings: Accelerations Present, No Pattern of Variable or Late Decelerations, Variability Moderate, Baseline Stable Contractions: Irregular Assessment/Plan - Assessment @39wks for Induction of labor at term. +smoker. GBS+. H/o pph and macrosomic baby. EFW 9+lbs - Obstetrical Risk Factors Obstetrical Risk Factors: GBS Positive, Obesity, Psychosocial Issues - Plan Plan: Induction, Cervical Ripening, IV Hydration
[2017-09-30 10:24] LABS: ABS Basophils 0 10^3/ul (0-0.2); ABS Eosinophils 0.1 10^3/ul (0-0.6); ABS Lymphocytes 1.3 10^3/ul (1.0-4.8); ABS Monocytes 0.5 10^3/ul (0-0.8); ABS Neutrophils 4.4 10^3/ul (1.5-7.7); ABS Nucleated RBC 0 10^3/ul; Hematocrit 32 % (35-47); Lymphocyte % 20.6 % (25-47); Mean Corpuscular HGB Conc 35 g/dl (31-36); Mean Corpuscular Hemoglobin 30 pg (27-31); Mean Corpuscular Volume 85 fL (80-97); Mean Platelet Volume 9.4 um3 (7.4-10.4); Nucleated Red Blood Cells % 0.1; Platelet Count 163 10^3/ul (150-450); Red Blood Count 3.72 10^6/ul (4.00-5.40); Red Cell Distribution Width 14 % (10.5-15); White Blood Count 6.3 10^3/ul (3.5-10.8)
[2017-09-30] MEDS: Misoprostol TAB* 100 MCG PO SCH ×2 (13:08→17:27)
[2017-09-30] MEDS: Penicillin G Potassium IV* 2,500,000 UNITS in NS 0.9% 100 ML* 100 ML IVPB SCH (18:24)
[2017-09-30] MEDS ORDERED: Dinoprostone* 10 MG VAG.SUPP VAGINAL ONE (21:14)
[2017-10-01] MEDS ORDERED: Penicillin G Potassium IV* 5,000,000 UNITS in NS 0.9% 100 ML* 100 ML IVPB ONE (09:14)
[2017-10-01] MEDS ORDERED: Oxytocin in LR* 20 UNITS/1,000 ML BAG IVPB SCH (10:00)
[2017-10-01] MEDS: Penicillin G Potassium IV* 2,500,000 UNITS in NS 0.9% 100 ML* 100 ML IVPB SCH (14:40)
[2017-10-01] MEDS ORDERED: OBEPIDURAL* 250 ML EPIDURAL ONE (16:35)
[2017-10-01] MEDS ORDERED: Sodium Citrate/Citric Acid* 15 ML UDC PO PRN (17:13)
[2017-10-01] MEDS ORDERED: Famotidine TAB* 20 MG PO PRN (17:13)
[2017-10-01] MEDS ORDERED: Phenylephrine IV* 40 MCG/ML 10 ML SYRINGE IV PUSH PRN ×2 (17:13)
[2017-10-01] MEDS ORDERED: Dibucaine 1% 28.35 GM TUBE PR PRN (17:54)
[2017-10-01] MEDS ORDERED: Misoprostol TAB* 200 MCG PR ONE (17:54)
[2017-10-01] MEDS ORDERED: Ibuprofen TAB* 600 MG PO PRN (17:54)
[2017-10-01] MEDS ORDERED: Witch Hazel PAD* JAR TOPICAL PRN (17:54)
[2017-10-01] MEDS ORDERED: Methylergonovine INJ* 0.2 MG/ML 1ML AMP IM ONE (17:54)
[2017-10-01] MEDS ORDERED: Acetaminophen TAB* 325 MG PO PRN (17:54)
[2017-10-01] MEDS ORDERED: Glycerin ADULT SUPP PR PRN (17:54)
[2017-10-01] MEDS ORDERED: OBEPIDURAL* 250 ML EPIDURAL SCH (18:00)
[2017-10-01] MEDS ORDERED: Misoprostol TAB* 200 MCG ONE (18:36)
[2017-10-01] MEDS ORDERED: Oxytocin in LR* 20 UNITS/1,000 ML BAG IVPB ONE (18:37)
[2017-10-01] MEDS ORDERED: Methylergonovine INJ* 0.2 MG/ML 1ML AMP ONE (18:37)
[2017-10-01] MEDS: Oxytocin in LR* 20 UNITS/1,000 ML BAG IVPB SCH ×2 (19:00→22:55)
[2017-10-01] MEDS ORDERED: Ammonia Inhalant* 1 EA AMP ONE (19:25)
[2017-10-01] MEDS: ceFAZolin 2 GM PREMIX (*) 2 GM/50 ML BAG IVPB SCH (19:56)
[2017-10-01] MEDS ORDERED: Simethicone TAB* 80 MG TAB.CHEW PO SCH (21:00)
[2017-10-01] MEDS: Docusate CAP* 100 MG PO SCH (21:12)
[2017-10-02] MEDS: ceFAZolin 2 GM PREMIX (*) 2 GM/50 ML BAG IVPB SCH (03:05)
[2017-10-02 05:55] LABS: ABS Basophils 0.1 10^3/ul (0-0.2); ABS Eosinophils 0 10^3/ul (0-0.6); ABS Lymphocytes 1.3 10^3/ul (1.0-4.8); ABS Monocytes 0.7 10^3/ul (0-0.8); ABS Nucleated RBC 0 10^3/ul; Eosinophil % 0.4 % (0-6); Hematocrit 25 % (35-47); Hemoglobin 8.7 g/dl (12.0-16.0); Lymphocyte % 14.3 % (25-47); Mean Corpuscular HGB Conc 36 g/dl (31-36); Mean Corpuscular Hemoglobin 30 pg (27-31); Mean Corpuscular Volume 85 fL (80-97); Mean Platelet Volume 8.9 um3 (7.4-10.4); Nucleated Red Blood Cells % 0; Platelet Count 150 10^3/ul (150-450); Red Cell Distribution Width 14 % (10.5-15); White Blood Count 9.1 10^3/ul (3.5-10.8)
[2017-10-02] MEDS: Ferrous Gluconate TAB* 324 MG TAB PO SCH ×2 (09:16→20:03)
[2017-10-02] MEDS: Docusate CAP* 100 MG PO SCH ×3 (09:16→20:03)
[2017-10-03] MEDS: Ferrous Gluconate TAB* 324 MG TAB PO SCH (07:59)
[2017-10-03] MEDS: Docusate CAP* 100 MG PO SCH (07:59)
[2017-10-03 08:10] VITALS: BP 105/65
[2017-10-03] MEDS: Penicillin G Potassium IV* 2,500,000 UNITS in NS 0.9% 100 ML* 100 ML IVPB SCH ×2 (09:09→09:10)
[2017-10-03] MEDS ORDERED: Tetan/Diph/Pertus SYR(Tdap)* 0.5 ML SYR(BOOSTRIX) use SYR IM ONE (10:00)
== END 2017-10-03 11:20 | disposition home or self-care (01) | DRG 560 ==
LOC: MCHOBOUT 07:20 → MCHOB 08:26
PROVIDERS: ADMIT Obstetrics & Gynecology; ATTEND Obstetrics & Gynecology
PROC: 10907ZC Drainage of Amniotic Fluid, Therapeutic from Products of Conception, Via Natural or Artificial Opening (ICD-10-PCS; principal; 2017-10-01)
PROC: 3E033VJ Introduction of Other Hormone into Peripheral Vein, Percutaneous Approach (ICD-10-PCS; 2017-10-01)
PROC: 10E0XZZ Delivery of Products of Conception, External Approach (ICD-10-PCS; 2017-10-01)
PROC: 4A1HXCZ Monitoring of Products of Conception, Cardiac Rate, External Approach (ICD-10-PCS; 2017-10-01)
PROC: 0KQM0ZZ Repair Perineum Muscle, Open Approach (ICD-10-PCS; 2017-10-01)
PROC: 4A1H7CZ Monitoring of Products of Conception, Cardiac Rate, Via Natural or Artificial Opening (ICD-10-PCS; 2017-10-01)
PROC: 10H073Z Insertion of Monitoring Electrode into Products of Conception, Via Natural or Artificial Opening (ICD-10-PCS; 2017-10-01)
DX: O99.824 Streptococcus B carrier state complicating childbirth (principal); O72.1 Other immediate postpartum hemorrhage; Z68.41 Body mass index [BMI] 40.0-44.9, adult; Z88.1 Allergy status to other antibiotic agents; Z3A.39 39 weeks gestation of pregnancy; O26.03 Excessive weight gain in pregnancy, third trimester; O99.334 Smoking (tobacco) complicating childbirth; F17.200 Nicotine dependence, unspecified, uncomplicated; O99.214 Obesity complicating childbirth; O77.0 Labor and delivery complicated by meconium in amniotic fluid; O70.1 Second degree perineal laceration during delivery; Z37.0 Single live birth; O90.81 Anemia of the puerperium; E66.01 Morbid (severe) obesity due to excess calories
CPT/HCPCS: 36415; 85025; 86850; 86900; 86901; 90715; A9270-GY; J0690; J2210; J2540; S0191

== ENCOUNTER 2018-03-27 10:57 | Emergency (ER) | payer OTHER ==
[2018-03-27] MEDS ORDERED: GuaiFENesin DM* 5 ML UDC PO ONE (11:29)
[2018-03-27] MEDS ORDERED: Benzonatate CAP* 100 MG PO ONE (11:29)
[2018-03-27 12:35] LABS: Urine Appearance Cloudy; Urine Bilirubin Negative (Negative); Urine Blood Negative (Negative); Urine Color Straw; Urine Glucose Negative (Negative); Urine Ketones Negative (Negative); Urine Nitrite Negative (Negative); Urine Protein Negative (Negative); Urine Specific Gravity 1.004 (1.010-1.030); Urine Urobilinogen Negative (Negative)
[2018-03-27 14:29] VITALS: BP 115/78
--- NOTE | 2018-03-27 14:47 | ED ---
Respiratory - HPI Summary HPI Summary: Patient is a 33-year-old female with a recent history PNA last month presenting to the ED with cough, SOB and fever which started 2 days ago. She denies any fevers, sweats, chills at this time. Cough is without production. She has not been taking antibiotics, however last month she was prescribed azithromycin for her PNA. She did not follow-up with any PCP immediately afterwards to assure PNA had resolved. She has not taken any medications [id number]. Patient is a heavy smoker. Denies any other symptoms. Denies any maxillary or frontal sinus tenderness. Denies rhinorrhea or ear pain. Denies any dysphagia or odynophagia. Denies any SOB at this time. - History of Current Complaint Chief Complaint: EDUpperRespComplaint Stated Complaint: COUGH, CHEST PIN Time Seen by Provider: 03/27/18 11:10 Hx Obtained From: Patient Onset/Duration: Sudden Onset Timing: Constant Initial Severity: Moderate Current Severity: Moderate Pain Intensity: 0 Character: Cough (Nonproductive) Sputum Amount: Scant Sputum Color: Clear Associated Signs and Symptoms: Fever, SOB - Risk Factors Status Asthmaticus Risk Factors: Negative Pulmonary Embolism Risk Factors: Negative Cardiac Risk Factors: Negative Pseudomonas Risk Factors: Negative - Allergy/Home Medications Allergies/Adverse Reactions: Allergies Allergy/AdvReac Type Severity Reaction Status Date / Time ciprofloxacin [From Cipro] Allergy Rash Verified 03/27/18 11:09 Cephalexin Allergy Hives Uncoded 03/27/18 11:09 PMH/Surg Hx/FS Hx/Imm Hx Previously Healthy: Yes Endocrine/Hematology History: Denies: Hx Diabetes, Hx Thyroid Disease Cardiovascular History: Denies: Hx Hypertension, Hx Pacemaker/ICD Respiratory History: Reports: Hx Asthma - no inhaler use Denies: Hx Chronic Obstructive Pulmonary Disease (COPD) GI History: Denies: Hx Ulcer History: Denies: Hx Renal Disease Musculoskeletal History: Denies: Hx Rheumatoid Arthritis, Hx Osteoporosis Sensory History: Denies: Hx Hearing Aid Psychiatric History: Denies: Hx Panic Disorder - Cancer History Cancer Type, Location and Year: None reported - Surgical History Surgery Procedure, Year, and Place: Rt WRIST GANGLION cyst - 1999 ( [facility] [place]) - Immunization History Date of Tetanus Vaccine: unk Date of Influenza Vaccine: none Hx Pertussis Vaccination: No Immunizations Up to Date: Yes Infectious Disease History: No Infectious Disease History: Denies: Hx Clostridium Difficile, Hx Hepatitis, Hx Human Immunodeficiency Virus (HIV), Hx of Known/Suspected MRSA, Hx Shingles, Hx Tuberculosis, Hx Known/ Suspected VRSA, History Other Infectious Disease, Traveled Outside the [place] in Last 30 Days - Family History Known Family History: Positive: None, Diabetes Negative: Cardiac Disease, Hypertension - Social History Occupation: Employed Full-time Lives: With Family Alcohol Use: None Hx Substance Use: No Substance Use Type: Reports: None Hx Tobacco Use: Yes Smoking Status (MU): Current Every Day Smoker Type: Cigarettes Amount Used/How Often: 1/2 ppd Have You Smoked in the Last Year: Yes Review of Systems Negative: Fever, Chills, Fatigue, Skin Diaphoresis Negative: Epistaxis, Dental Pain Negative: Palpitations, Chest Pain Positive: Cough Positive: no symptoms reported, see HPI Neurological: Negative All Other Systems Reviewed And Are Negative: Yes Physical Exam Triage Information Reviewed: Yes Vital Signs On Initial Exam: Initial Vitals Temp Pulse Resp BP Pulse Ox 97.9 F 67 16 132/74 100 03/27/18 11:06 03/27/18 11:06 03/27/18 11:06 03/27/18 11:06 03/27/18 11:06 Vital Signs Reviewed: Yes Appearance: Positive: Well-Appearing, Well-Nourished Skin: Positive: Warm, Skin Color Reflects Adequate Perfusion Head/Face: Positive: Normal Head/Face Inspection Eyes: Positive: EOMI, BEATRIZ, Conjunctiva Clear Neck: Positive: Supple, No Lymphadenopathy Respiratory/Lung Sounds: Positive: Rhonchi - right lower lung base, Wheezes Cardiovascular: Positive: Pulses are Symmetrical in both Upper and Lower Extremities Musculoskeletal: Positive: Strength/ROM Intact Neurological: Positive: Speech Normal Psychiatric: Positive: Affect/Mood Appropriate Diagnostics - Vital Signs Vital Signs Temp Pulse Resp BP Pulse Ox 03/27/18 14:28 98.8 F 56 16 115/78 98 03/27/18 13:51 54 115/79 98 03/27/18 13:24 55 96 03/27/18 12:21 61 108/73 95 03/27/18 11:21 65 115/76 96 03/27/18 11:06 97.9 F 67 16 132/74 100 - Laboratory Lab Results: Lab Results 03/27/18 03/27/18 Range/Units 11:09 11:57 Beta HCG, Quant < 0.60 mIU/mL Urine Color Straw Urine Appearance Cloudy Urine pH 6.0 (5-9) Ur Specific [place] 1.004 L (1.010-1.030) Urine Protein Negative (Negative) Urine Ketones Negative (Negative) Urine Blood Negative (Negative) Urine Nitrate Negative (Negative) Urine Bilirubin Negative (Negative) Urine Urobilinogen Negative (Negative) Ur Leukocyte Esterase Negative (Negative) Urine Glucose Negative (Negative) Lab Statement: Any lab studies that have been ordered have been reviewed, and results considered in the medical decision making process. Disposition - Course Course Of Treatment: Patient appears stable on arrival. She is nontoxic in appearing, nondiaphoretic and vital signs are stable. She states she had PNA last month, was given azithromycin which symptoms improved. However 2 days ago she developed the same symptoms again. X-ray obtained: IMPRESSION: CHEST X- RAY FINDINGS DEMONSTRATE ASYMMETRIC FULLNESS OF THE RIGHT HILUM AND LIKELY RIGHT. LUNG INFILTRATE THAT APPEARS TO HAVE PROGRESSED SINCE THE FEBRUARY 12, 2018 CHEST X-RAY. THE SAME DAY CT OF THE CHEST ACQUIRED FEBRUARY 12, 2018 CONFIRM MULTIFOCAL INFILTRATES AND. GROUNDGLASS OPACIFICATION OF THE RIGHT LOWER LUNG WELL RIGHT HILAR LYMPHADENOPATHY. THIS CHEST X-RAY INDICATES THIS FINDINGS HAVE PROGRESSED. THE DIFFERENTIAL DIAGNOSIS. INCLUDES INFECTIOUS OR INFLAMMATORY ETIOLOGIES THAT ARE MORE LIKELY ACCORDING TO THE. PATIENT'S AGE , HOWEVER A NEOPLASTIC ETIOLOGY IS NOT TOTALLY EXCLUDED. Discussed with patient at length these results. I am concerned she may have an underlying pathology, may be immunocompromised at baseline or due to her smoking history will continue to have lung infections. She did have a CT of the chest last month d/t the findings on xray. I have encouraged her to follow up in a few days with our [facility] for a repeat x-ray. She does state she has a follow-up with Dr. Ocampo in early April. She is afebrile and other vital signs stable, labs were not drawn on this visit. Levaquin and robitussin prescribed. - Diagnoses Provider Diagnoses: Pneumonia Discharge - Sign-Out/Discharge Documenting (check all that apply): Patient Departure - Discharge Plan Condition: Stable Disposition: HOME Prescriptions: Benzonatate CAP* [Tessalon CAP*] 100 mg PO TID #21 cap Levofloxacin TAB* [Levaquin TAB*] 500 mg PO DAILY #5 tab Patient Education Materials: Pneumonia (ED) Forms: *Work Release Referrals: No Primary Care Phys,NOPCP [Primary Care Provider] - Additional Instructions: Please follow up with [facility] once daily x 5 days Tessalon up to three times daily Please follow up within 5 days for a repeat chest xray - Billing Disposition and Condition Condition: STABLE Disposition: Home
== END 2018-03-27 14:28 | disposition home or self-care (01) ==
LOC: ED 10:57
DX: J18.9 Pneumonia, unspecified organism (principal); F17.210 Nicotine dependence, cigarettes, uncomplicated
CPT/HCPCS: 36415; 71046; 81003; 84702; 99282; A9270-GY

== ENCOUNTER 2018-06-04 15:45 | Emergency (ER) | payer SELFPAY ==
--- NOTE | 2018-06-04 17:17 | ED ---
Upper Extremity Pain - HPI Summary HPI Summary: Patient is a 33-year-old female presenting to the ED with right forearm pain. She states she fell approximate one month ago in [place] parking lot and developed some pain to the right forearm just below the elbow. She denied any elbow pain at that time. She again fell 2 weeks ago and states since that time she's been having pain to the same area. She is also endorsing a "lump" to the area. She is able to flex and extend at the wrist, however with pain. She denies any wrist pain. 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 She denies numbness or tingling. - History of Current Complaint Chief Complaint: EDExtremityUpper Stated Complaint: "LUMP IN ARM, FELL COUPLE WEEKS AGO" PER PT Time Seen by Provider: 06/04/18 16:29 Hx Obtained From: Patient Hx Last Menstrual Period: 10/04/16 Mechanism Of Injury: Blunt Trauma Onset/Duration: Started Hours Ago Timing: Constant Severity Initially: Moderate Severity Currently: Moderate Pain Location: Forearm Character: Aching Aggravating Factor(s): Nothing Alleviating Factor(s): Nothing Associated Signs & Symptoms: Negative: Swelling, Redness, Bruising, Weakness, Numbness/Tingling, Nausea, Vomiting Related History: Dominant Hand Right - Risk Factors Non-Orthopedic Risk Factor: Negative DVT Risk Factors: Estrogen Septic Arthritis Risk Factor: Negative - Allergies/Home Medications Allergies/Adverse Reactions: Allergies Allergy/AdvReac Type Severity Reaction Status Date / Time ciprofloxacin [From Cipro] Allergy Rash Verified 03/27/18 11:09 Cephalexin Allergy Hives Uncoded 03/27/18 11:09 PMH/Surg Hx/FS Hx/Imm Hx Previously Healthy: Yes Endocrine/Hematology History: Denies: Hx Diabetes, Hx Thyroid Disease Cardiovascular History: Denies: Hx Hypertension, Hx Pacemaker/ICD Respiratory History: Reports: Hx Asthma - no inhaler use Denies: Hx Chronic Obstructive Pulmonary Disease (COPD) GI History: Denies: Hx Ulcer History: Denies: Hx Renal Disease Musculoskeletal History: Denies: Hx Rheumatoid Arthritis, Hx Osteoporosis Sensory History: Denies: Hx Hearing Aid Psychiatric History: Denies: Hx Panic Disorder - Cancer History Cancer Type, Location and Year: None reported - Surgical History Surgery Procedure, Year, and Place: Rt WRIST GANGLION cyst - 1999 ( [facility] [place]) - Immunization History Date of Tetanus Vaccine: unk Date of Influenza Vaccine: none Hx Pertussis Vaccination: No Immunizations Up to Date: Yes Infectious Disease History: No Infectious Disease History: Denies: Hx Clostridium Difficile, Hx Hepatitis, Hx Human Immunodeficiency Virus (HIV), Hx of Known/Suspected MRSA, Hx Shingles, Hx Tuberculosis, Hx Known/ Suspected VRSA, History Other Infectious Disease, Traveled Outside the [place] in Last 30 Days - Family History Known Family History: Positive: None, Diabetes Negative: Cardiac Disease, Hypertension - Social History Occupation: Employed Full-time Lives: With Family Alcohol Use: None Hx Substance Use: No Substance Use Type: Reports: None Hx Tobacco Use: Yes Smoking Status (MU): Light Every Day Tobacco Smoker Type: Cigarettes Amount Used/How Often: 1/2 ppd Have You Smoked in the Last Year: Yes Review of Systems Constitutional: Negative Negative: Fever, Chills, Fatigue, Skin Diaphoresis Negative: Palpitations, Chest Pain Genitourinary: Negative Positive: no symptoms reported, see HPI Positive: Arthralgia, Myalgia Skin: Negative Neurological: Negative All Other Systems Reviewed And Are Negative: Yes Physical Exam Triage Information Reviewed: Yes Vital Signs On Initial Exam: Initial Vitals Temp Pulse Resp BP Pulse Ox 97.7 F 74 18 153/88 100 06/04/18 15:49 06/04/18 15:49 06/04/18 15:49 06/04/18 15:49 06/04/18 15:49 Vital Signs Reviewed: Yes Appearance: Positive: Well-Appearing, Well-Nourished Skin: Positive: Warm, Skin Color Reflects Adequate Perfusion Head/Face: Positive: Normal Head/Face Inspection Eyes: Positive: EOMI, BEATRIZ, Conjunctiva Clear Neck: Positive: Supple, No Lymphadenopathy Respiratory/Lung Sounds: Positive: Clear to Auscultation, Breath Sounds Present Cardiovascular: Positive: Pulses are Symmetrical in both Upper and Lower Extremities Musculoskeletal: Positive: Pain @ - right forearm without extension into the wrist or hand Neurological: Positive: Speech Normal Psychiatric: Positive: Normal, Affect/Mood Appropriate Diagnostics - Vital Signs Vital Signs Temp Pulse Resp BP Pulse Ox 06/04/18 15:49 97.7 F 74 18 153/88 100 - Laboratory Lab Statement: Any lab studies that have been ordered have been reviewed, and results considered in the medical decision making process. Course/Dx - Course Course Of Treatment: Discal examination, patient is evaluated for forearm tenderness with a "lump" after 2 falls over the past month. She states she is unable to flex and extend at the elbow. She is also stating she has reduced engineering program manager strength. However, on examination, there does not appear to be a lump identified. She does have engineering program manager strength into the right hand and she is able to flex and extend at the elbow, however is endorsing some pain to the anterior portion of the elbow only with palpation. Denies any other symptoms. X-ray obtained which is negative for any acute fractures or other findings. I've advised if symptoms persist, she will follow-up with orthopedic clinic. I have given her instructions for gentle stretches, moist heat and ibuprofen. She offers no other complaints at this time. She will be diagnosed with contusion and muscle strain. - Diagnoses Differential Diagnosis/HQI/PQRI: Positive: Contusion, Strain, Sprain Provider Diagnoses: Forearm contusion Discharge - Sign-Out/Discharge Documenting (check all that apply): Patient Departure Patient Received Moderate/Deep Sedation with Procedure: No - Discharge Plan Condition: Stable Disposition: HOME Patient Education Materials: Arm Pain (ED) Referrals: Michel Robles MD [Medical Doctor] - No Primary Care Phys,NOPCP [Primary Care Provider] - Additional Instructions: Please follow up with Dr. Robles office Ibuprofen 600mg three times daily Do not take tylenol Moist heat to the area - no ICE Gentle stretches to the muscle will help No evidence of fracture on today's visit - Billing Disposition and Condition Condition: STABLE Disposition: Home
[2018-06-04 17:22] VITALS: BP 119/90
== END 2018-06-04 17:20 | disposition home or self-care (01) ==
LOC: ED 15:45
DX: S50.11XA Contusion of right forearm, initial encounter (principal); W19.XXXA Unspecified fall, initial encounter; Y92.9 Unspecified place or not applicable; Z88.1 Allergy status to other antibiotic agents; F17.210 Nicotine dependence, cigarettes, uncomplicated
CPT/HCPCS: 99282